=== PATIENT | female | born 1935 | race Caucasian/White ===

== ENCOUNTER → 2018-05-08 | Outpatient (CLI) | payer MEDICARE ==
--- NOTE | 2018-05-08 14:28 | NUR ---
MBSS COMPLETED. -S/S OF ASPIRATION. RECOMMEND REGULAR TEXTURE, THIN LIQUIDS;PILLS WHOLE WITH LIQUIDS. GI CONSULT. PATIENT INFORMATION: Pt IS AN 83 YEAR OLD FEMALE REFERRED FOR AN MBSS SECONDARY TO COMPLAINS OF DIFFICULTY SWALLOWING. Pt REPORTS THAT SHE FEELS A SHARP PAIN IN HER ESOPHAGUS WHEN SHE EATS. Pt REPORTS THAT SHE HAS A PAST MEDICAL HISTORY SIGNIFICANT FOR HYPERTENSION, GERD (DX 2014), ANKLE SURGERIES, GLASSES, DENTAL IMPLANTS AND RECENT DIAGNOSIS OF HIATAL HERNIA. MBSS INTERPRETATION: SWALLOW FUNCTION AND EFFICIENCY WITHIN FUNCTIONAL LIMITS. ORAL MOTOR STRENGTH, COORDINATION, AND ROM WITHIN FUNCTIONAL LIMITS. LARYNGEAL ELEVATION/EXCURSION STRONG WITH TIMELY PHARYNGEAL RESPONSE. NO OVERT SIGNS OR SYMPTOMS OF ASPIRATION PRESENT DURING MBSS. A-P VIEW: TOTAL BOLUS TRANSIT TIME OF MORE THAN 30 SECONDS. BOLUS REFLUX WITHIN THE ESOPHAGUS IN MID SECTION OF ESOPHAGUS. TRIALS: TRIAL #1: TSP PUREED: GOOD TRIAL #2: CUP SIP THIN LIQUIDS: GOOD TRIAL #3: TSP PUDDING: GOOD TRIAL #4: TSP MIXED: GOOD TRIAL #5: COOKIE: GOOD TRIAL #6: CUP SIP THIN LIQUIDS: GOOD TRIAL #7: A-P PUDDING: OBSERVATION ABOVE RECOMMENDATIONS: 1. REGULAR TEXTURE, THIN LIQUIDS; PILLS WHILE WITH LIQUIDS. 2. COMPENSATORY STRATEGIES: *SEATED AT 90 *REMAIN UPRIGHT 30 MINUTES AFTER THE MEAL *SLOW RATE *ALTERNATE BITES AND SIPS 3. GI CONSULT SECONDARY TO A-P OBSERVATIONS G-CODES SWALLOWING: [id number] Addendum: 05/08/18 at [address] Amended: Links added.
== END | disposition home or self-care (01) ==
LOC: RAH 09:25
PROVIDERS: ATTEND Internal Medicine Gastroenterology
DX: R13.12 Dysphagia, oropharyngeal phase (principal); R63.3 Feeding difficulties
CPT/HCPCS: 74230; 92611

== ENCOUNTER → 2020-01-21 | Outpatient (CLI) | payer MEDICARE | END | disposition home or self-care (01) | LOC: RAH 13:35 | PROVIDERS: ATTEND Nurse Practitioner Adult Health | DX: N18.9 Chronic kidney disease, unspecified (principal) | CPT/HCPCS: 76770 ==

== ENCOUNTER → 2023-11-22 | Outpatient (CLI) | payer MEDICARE | END | disposition home or self-care (01) | LOC: SHCH 10:35 | PROVIDERS: ATTEND Internal Medicine Cardiovascular Disease | DX: I08.0 Rheumatic disorders of both mitral and aortic valves (principal); I11.9 Hypertensive heart disease without heart failure | CPT/HCPCS: 93306 ==

== ENCOUNTER → 2023-12-04 | Outpatient (CLI) | payer MEDICARE | END | disposition home or self-care (01) | LOC: RESP 10:13 | PROVIDERS: ATTEND Internal Medicine Cardiovascular Disease | DX: R06.02 Shortness of breath (principal); R06.00 Dyspnea, unspecified; F17.210 Nicotine dependence, cigarettes, uncomplicated | CPT/HCPCS: 94060; 94729 ==

== ENCOUNTER → 2024-04-03 | Outpatient (CLI) | payer MEDICARE ==
--- NOTE | 2024-04-03 12:36 | HMCSR ---
APPROVED REPORT Laterality: Bilateral Indications r09.89 Doppler Spectral Velocity Analysis PSV / EDVPSV / EDV ECA (R) 96 / cm/sECA (L) 95 / cm/s dICA (R) 94 / 28 cm/sdICA (L) 74 / 19 cm/s Kasey (R) 116 / 25 cm/smICA (L) 106 / 25 cm/s pICA (R) 103 / 28 cm/spICA (L) 71 / 15 cm/s dCCA (R) 44 / 9 cm/sdCCA (L) 61 / 11 cm/s mCCA (R) 75 / 16 cm/smCCA (L) 75 / 13 cm/s pCCA (R) 70 / 13 cm/spCCA (L) 96 / 17 cm/s Vert (R) 45 / cm/sVert (L) 61 / cm/s Subl. (R) 122 / cm/sSubl. (L) 99 / cm/s ICA/CCA 1.55ICA/CCA 1.10 Technologist Impression Mildl plaque noted in the bilateral carotids bulbs. MARQUISE and LICA appear patent without hemodynamic significance. Bilateral vertebral arteries appear antegrade. Conclusion Mildl plaque noted in the bilateral carotids bulbs. MARQUISE and LICA appear patent without hemodynamic significance. Bilateral vertebral arteries appear antegrade. Conclusion Mildl plaque noted in the bilateral carotids bulbs. MARQUISE and LICA appear patent without hemodynamic significance. Bilateral vertebral arteries appear antegrade.
--- NOTE | 2024-04-03 12:36 | HMCSR ---
APPROVED REPORT Indications R09.89 Duplex Results A/PTransverseLongitudinalVelocityWaveform Proximal Aorta 1.93cm1.91cm1.29hm996.60 cm/sec Mid Aorta 1.79cm1.87cm1.89cm95.40 cm/sec Distal Aorta 1.38cm1.54cm1.45cm69.60 cm/sec Rt. Common Iliac Artery1.08cm1.21cm1.07cm76.20 cm/sec Lt. Common Iliac Artery 1.00cm0.97cm1.04cm71.00 cm/sec Techologist Impression The abdominal aorta and the proximal portion of the right and left common iliac arteries were examine d utilizing duplex ultrasonography. The abdominal aorta and the right and left common iliac arteries are patent and normal in size withou t evidence of aneurysm; however, there is evidence of Mild atherosclerotic disease. Conclusion The abdominal aorta and the proximal portion of the right and left common iliac arteries were examine d utilizing duplex ultrasonography. The abdominal aorta and the right and left common iliac arteries are patent and normal in size withou t evidence of aneurysm; however, there is evidence of Mild atherosclerotic disease. Conclusion The abdominal aorta and the proximal portion of the right and left common iliac arteries were examine d utilizing duplex ultrasonography. The abdominal aorta and the right and left common iliac arteries are patent and normal in size withou t evidence of aneurysm; however, there is evidence of Mild atherosclerotic disease.
== END | disposition home or self-care (01) ==
LOC: SHCH 07:37
PROVIDERS: ATTEND Internal Medicine Cardiovascular Disease
DX: I65.23 Occlusion and stenosis of bilateral carotid arteries (principal); I70.0 Atherosclerosis of aorta; R09.89 Other specified symptoms and signs involving the circulatory and respiratory systems
CPT/HCPCS: 93880; 93978